=== PATIENT | female | born 2000 | race Two or more races ===

== ENCOUNTER 2021-07-05 13:04 | Emergency (ER) | payer MEDICAID, OTHER ==
[~2021-07-05] VITALS: Ht 160 cm; Wt 38.6 kg
[2021-07-05 13:09] VITALS: BP 133/90
== END 2021-07-05 17:09 | disposition left against medical advice (07) ==
LOC: ER 13:04
DX: M79.641 Pain in right hand (principal); Z53.21 Procedure and treatment not carried out due to patient leaving prior to being seen by health care provider; W22.8XXA Striking against or struck by other objects, initial encounter; Y93.9 Activity, unspecified; Y92.89 Other specified places as the place of occurrence of the external cause; Y99.8 Other external cause status
CPT/HCPCS: 73130